=== PATIENT | female | born 1990 | race African-American/Black ===

== ENCOUNTER 2020-09-22 23:42 | Emergency (ER) | payer OTHER ==
[~2020-09-22] VITALS: Ht 167.6 cm; Wt 72.6 kg
[2020-09-23 00:11] LABS: AMPHETAMINES SCREEN,URINE NEGATIVE (NEGATIVE); BENZODIAZEPINES SCREEN,URINE NEGATIVE (NEGATIVE); PHENCYCLIDINE SCREEN,URINE NEGATIVE (NEGATIVE)
[2020-09-23 00:25] VITALS: BP 104/73
== END 2020-09-23 00:29 | disposition home or self-care (01) ==
LOC: ER 09-23 00:01
DX: Z02.83 Encounter for blood-alcohol and blood-drug test (principal); V43.02XA Car driver injured in collision with other type car in nontraffic accident, initial encounter; Y92.488 Other paved roadways as the place of occurrence of the external cause; Y99.0 Civilian activity done for income or pay
CPT/HCPCS: 36415; 80307; 80320; 99283